=== PATIENT | male | born 1945 | race Caucasian/White ===

== ENCOUNTER 2020-03-26 22:15 | Emergency (ER) | payer MEDICARE ==
--- NOTE | 2020-03-26 23:13 | CT ---
CT Stone Protocol 03/26/2020 10:26 PM HISTORY: Left flank and back pain. Nausea and vomiting for 2 days. COMPARISON: None. Technique: Multiple contiguous axial CT images are obtained through the abdomen and pelvis without IV contrast. Coronal reformats are provided. FINDINGS: This examination is limited for the evaluation of solid organs and vascular structures due to the lac k of intravenous contrast. Lower Chest: A 5 mm pulmonary nodule is seen in the right middle lobe which is adjacent to the major fissure. There are increased interstitial densities at the right lung base with scattered mild emphysematous changes. Rounded nodular density is seen at the posterior right lung base probably due to area of rounded atelectasis. Abdomen: Liver: Subcentimeter too small to characterize hypodense lesion dome of the liver. Gallbladder: Surgically absent. Pancreas: Grossly normal nonenhanced CT appearance., There is no evidence of a bowel obstruction. Spleen: Grossly normal nonenhanced CT appearance. Adrenals: Grossly normal nonenhanced CT appearance. Kidneys: No renal calculi are visualized, and there is no evidence of hydronephrosis. Minimal symmetr ic perinephric stranding is present. Ureters: No ureteral calculus is seen.. Pelvis: Urinary bladder: within normal limits. Reproductive Organs: No pelvic masses. Esophagus proximal to this region is fluid-filled. Lymph Nodes: No enlarged lymph nodes. Bowel: Cecum is located just to the left of midline in the pelvis. Loops of small bowel are normal in caliber. There is suggested mild thickening in the region of the the distal esophagus. Esophagus proximal to this region does appear fluid-filled. The evaluated with endoscopy. Appendix: Not visualized, there are no secondary signs to suggest appendicitis. Peritoneum: No free fluid, free air, or fluid collection. Retroperitoneum: within normal limits. Vessels: Vascular calcifications are seen in the abdominal aorta and involving the iliac arteries. Th ere does appear to be swelling of the mesentery vessels within the mid abdomen this could be related to internal hernia given that the cecum is located in the left aspect of the abdomen and loop s of small bowel are seen lateral to the ascending colon. However, there is no evidence of a bowel obstruction. Abdominal Wall: within normal limits. Bones: Degenerative changes are seen in the spine with bilateral hip osteoarthritis. Postoperative ch anges lower lumbar spine are seen. IMPRESSION: 1. Prominence of the distal esophagus which may represent thickening of the núñez of the distal esoph casper or mass. Endoscopy is recommended for further evaluation of this finding. 2. Swirling of the mesenteric vessels in the mid abdomen, and loops of small bowel are seen lateral t o the ascending colon. The cecum is also located just to the left of midline in the pelvis. Findings are likely related to an internal hernia 3. Small 5 mm right middle lobe pulmonary nodule which is difficult to characterize with mild chronic lung changes right lung base. 4. No renal or ureteral calculi are seen bilaterally. 5. Subcentimeter difficult to characterize hypodense lesion dome of the liver.
[2020-03-26 23:14] LABS: Anion Gap 16 mmol/L (10-20); BUN (Urea Nitrogen) 14 mg/dL (8.4-25.7); Calc. Creatinine Clearance 0 mL/min (70-130); Calcium 8.9 mg/dL (7.8-10.44); Carbon Dioxide 20 mmol/L (23-31); Chloride 105 mmol/L (98-107); Estimated GFR-MDRD 90; Glucose 117 mg/dL (83-110); Potassium 4.1 mmol/L (3.5-5.1); Sodium 137 mmol/L (136-145)
[2020-03-26 23:23] LABS: Band 3 % (5-11); Hemoglobin 14.7 g/dL (14.0-18.0); Lymphocytes 15 % (21-51); MDiff Complete? YES; Mean Corpuscular HGB CONC 32.9 g/dL (32.0-36.0); Mean Corpuscular Volume 91.3 fL (78.0-98.0); Mean Platelet Volume 8.2 fL (7.4-10.4); Monocytes 1 % (0-10); Neutrophil 81 % (42-75); Platelet Count 192 thou/uL (130-400); RBC Distribution Width 11.6 % (11.5-14.5); White Blood Cell (WBC) Count 9.4 thou/uL (4.8-10.8)
[2020-03-27] MEDS ORDERED: Lidocaine 1% 20 ML MDV ONE
[2020-03-27] MEDS ORDERED: Sodium Chloride 0.9% 1,000 ML ONE
[2020-03-27 00:09] LABS: PTT 30.4 sec (22.9-36.1); Prothrombin Time 13.4 sec (12.0-14.7)
[2020-03-27] MEDS ORDERED: Fentanyl 100 MCG/2 ML VIAL ONE (00:29)
== END 2020-03-27 00:40 | disposition short-term general hospital (02) ==
LOC: MADERS 22:15
DX: K46.9 Unspecified abdominal hernia without obstruction or gangrene (principal); M54.5 Low back pain; R11.2 Nausea with vomiting, unspecified; K21.9 Gastro-esophageal reflux disease without esophagitis; Z79.899 Other long term (current) drug therapy
CPT/HCPCS: 36415; 74176; 80048; 83605; 83690; 85025; 85610; 85730; 86850; 86900; 86901; 96374; J2001; J3010; J7050

== ENCOUNTER 2022-12-06 14:02 | Emergency (ER) | payer MEDICARE ==
[2022-12-06] MEDS ORDERED: Acetaminophen 500 MG TAB ONE (14:26)
== END 2022-12-06 16:04 | disposition home or self-care (01) ==
LOC: MADERS 14:02
DX: S13.4XXA Sprain of ligaments of cervical spine, initial encounter (principal); S43.402A Unspecified sprain of left shoulder joint, initial encounter; S50.311A Abrasion of right elbow, initial encounter; K21.9 Gastro-esophageal reflux disease without esophagitis; R91.1 Solitary pulmonary nodule; W31.2XXA Contact with powered woodworking and forming machines, initial encounter
CPT/HCPCS: 70450; 71270; 72125